=== PATIENT | male | born 1950 | race Native Hawaiian/Other Pacific Islander ===

== ENCOUNTER 2022-07-18 16:01 | Emergency (ER) | payer OTHER ==
[~2022-07-18] VITALS: Ht 182.9 cm; Wt 102.5 kg
[2022-07-18 16:01] VITALS: BP 121/78; TEMP 98.5
[~2022-07-18 16:01] MED LIST: AMOX875T8 PO
[2022-07-18 16:25] LABS: PLATELET COUNT 195 K/uL (142-355)
[2022-07-18 16:33] LABS: POTASSIUM 4.7 mmol/L (3.6-5.2)
[2022-07-18] MEDS ORDERED: FLUTMIS6 INH (19:39)
[2022-07-18] MEDS ORDERED: ALBUTEROL108 MCG/AC INH (19:40)
[2022-07-18] MEDS ORDERED: SPIRONOLACT25 MG PO (19:41)
[2022-07-18] MEDS ORDERED: PROSCAR5 MG PO (19:44)
[2022-07-18] MEDS ORDERED: DULO60CA2 PO (19:44)
[2022-07-18] MEDS ORDERED: TAMS0.4C PO (19:45)
[2022-07-18] MEDS ORDERED: GABA100C2 PO (19:45)
[2022-07-18] MEDS ORDERED: HYDROCORTISONE12 TOP (19:47)
[2022-07-18] MEDS ORDERED: FURO40TA93 PO (19:49)
[2022-07-18] MEDS ORDERED: INSULIN AS100 UNIT/2 SC (19:49)
[2022-07-18] MEDS ORDERED: MELATONIN3 M1 PO (19:50)
[2022-07-18] MEDS ORDERED: METHADONE10 MG PO (19:51)
[2022-07-18] MEDS ORDERED: LEVEMIR FL100 UNIT/M SC (19:52)
[2022-07-18] MEDS ORDERED: NITR0.4S2 SL (19:53)
[2022-07-18] MEDS ORDERED: CLOP75TA2 PO (19:54)
[2022-07-18] MEDS ORDERED: TRADJENTA5 M1 PO (19:55)
[2022-07-18] MEDS ORDERED: PRAVASTATIN10 MG PO (19:55)
[2022-07-18] MEDS ORDERED: NOVOLOG FL100 UNIT/M SC ×2 (19:57)
[2022-07-18] MEDS ORDERED: TRULICITY0.75 MG/0. SC (19:59)
[2022-07-19] MEDS ORDERED: LEVEMIR FL100 UNIT/M SC (09:43)
[2022-07-19] MEDS ORDERED: PERCOCET1 TA3 PO (16:06)
[2022-07-19] MEDS ORDERED: SENNA PLUS 50-81 CAP PO (16:06)
[2022-07-19] MEDS ORDERED: SILV1CRE TOP (16:08)
== END 2022-07-18 17:28 | disposition still patient (30) ==
LOC: ED 16:01
PROVIDERS: Emergency Medicine
DX: F25.8 Other schizoaffective disorders (principal); R45.1 Restlessness and agitation; Z11.52 Encounter for screening for COVID-19; Z04.6 Encounter for general psychiatric examination, requested by authority
CPT/HCPCS: 80053; 81002; 85027; 87635; 93005; 99283; U0003